=== PATIENT | female | born 1945 | race Caucasian/White ===

== ENCOUNTER 2023-12-19 13:12 | Emergency (ER) | payer OTHER ==
[~2023-12-19] VITALS: Ht 172.7 cm; Wt 72.6 kg
[2023-12-19] MEDS: IV NS 0.9% 500 ML BAG IV ONE (13:45)
[2023-12-19 14:12] LABS: BASOPHILS % (AUTO) 0.5 % (0.0-2.0); HEMATOCRIT 39 % (33-45); HEMOGLOBIN 12.9 g/dL (11.5-14.8); LYMPHOCYTES # (AUTO) 0.5 K/uL (0.8-4.8); LYMPHOCYTES % (AUTO) 6.2 % (20.0-44.0); MEAN CORPUSCULAR HEMOGLOBIN 26 PG (26.0-33.0); MEAN CORPUSCULAR HGB CONC 33 g/dl (31.0-36.0); MEAN CORPUSCULAR VOLUME 79 fL (82-100); MONOCYTES # (AUTO) 0.3 K/uL (0.1-1.30); MONOCYTES % (AUTO) 3.4 % (2.0-12.0); NEUTROPHILS # (AUTO) 7.7 K/uL (1.8-8.9); NEUTROPHILS % (AUTO) 89.9 % (43.0-81.0); PLATELET COUNT (AUTO) 224 K/uL (150-450); RED BLOOD CELL COUNT(AUTO) 4.91 MIL/uL (4.0-5.2); RED CELL DISTRIBUTION WIDTH 14.2 % (11.5-15.0); WHITE BLOOD COUNT (AUTO) 8.6 K/uL (4.3-11.0)
[2023-12-19 14:23] LABS: CALCIUM, SERUM 9.4 mg/dL (8.5-10.1); CARBON DIOXIDE 24 mmol/L (21-32); CHLORIDE 83 mmol/L (98-107); CREATININE 0.9 mg/dL (0.6-1.3); GLUCOSE 132 mg/dL (74-106); UREA NITROGEN, BLOOD 19 mg/dL (7-18)
[2023-12-19 14:25] LABS: POTASSIUM 2.8 mmol/L (3.5-5.1); SODIUM SERUM 120 mmol/L (136-145)
[2023-12-19] MEDS ORDERED: POTASSIUM CL. PREMIX PERIPHER. 50 ML ONE ×4 (14:47→18:03)
[2023-12-19] MEDS: POTASSIUM CL. PREMIX PERIPHER. 50 ML IV SCH (15:00)
[2023-12-19] MEDS ORDERED: ATOR80TA PO (15:18)
[2023-12-19] MEDS ORDERED: CICL6.1H2 IH (15:18)
[2023-12-19] MEDS ORDERED: ALBU8.5H8 IH (15:18)
[2023-12-19] MEDS ORDERED: FLUO20CA42 PO (15:18)
[2023-12-19] MEDS ORDERED: LISI1TAB29 PO (15:18)
[2023-12-19] MEDS ORDERED: TRAZ-257 PO (15:18)
[2023-12-19 15:24] LABS: ALANINE AMINOTRANSFERASE 1290 U/L (12-78); ALKALINE PHOSPHATASE 82 U/L (46-116); ASPARTATE AMINOTRANSFERASE > 1000 U/L (15-37); BILIRUBIN,DIRECT 0.1 mg/dL (0.0-0.2); BILIRUBIN,TOTAL 0.4 mg/dL (0.2-1.0); NT-PRO BNP 16292 pg/mL (0-125); TOTAL PROTEIN, SERUM 6.9 g/dL (6.4-8.2)
[2023-12-19] MEDS ORDERED: Magnesium 1GM/D5W 100ML PREMIX 100 ML IV ONE (15:40)
[2023-12-19] MEDS: Magnesium 1GM/D5W 100ML PREMIX 100 ML IV SCH (15:45)
[2023-12-19] MEDS ORDERED: ASPIRIN 325 MG TABLET ONE (15:59)
[2023-12-19] MEDS: ASPIRIN 325 MG TABLET PO ONE (16:00)
[2023-12-19 16:28] LABS: ADD URINE CULTURE YES; APPEARANCE,URINE Clear (CLEAR); BACTERIA,URINE Few /HPF (None Seen); BILIRUBIN,URINE SMALL (NEGATIVE); BLOOD, URINE Moderate Ery/uL (NEGATIVE); COLOR,URINE YELLOW (YELLOW); KETONES,URINE >=160 mg/dL (NEGATIVE); LEUKOCYTE ESTERASE ,URINE Negative (NEGATIVE); NITRITE, URINE Negative (NEGATIVE); PROTEIN,URINE >=300 mg/dl (NEGATIVE); SQUAMOUS EPITHELIAL CELL,UR Few /HPF (None Seen); UGLUCOSE Negative (NEGATIVE); UROBILINOGEN,URINE 0.2 EU/dL (0.2)
[2023-12-19 16:29] LABS: HYALINE CASTS, URINE Few /LPF (None Seen)
[2023-12-19 19:00] VITALS: BP 141/93; TEMP 98.6; O2SAT 96
== END 2023-12-19 19:45 | disposition short-term general hospital (02) ==
LOC: ER 13:12
DX: U07.1 COVID-19 (principal); R53.1 Weakness; I10 Essential (primary) hypertension; F41.9 Anxiety disorder, unspecified; F32.A Depression, unspecified; Z60.2 Problems related to living alone
CPT/HCPCS: 99291; 96365; 96366; 87426; 96368; 93005; 71045; 85025; 80048; 87086; 80076; 83735; 81001; 36415; 84484; 83880; J7040; J3480 ×4; J3475